=== PATIENT | male | born 2000 | race Caucasian/White ===

== ENCOUNTER 2024-01-17 12:50 | Emergency (ER) | payer BC, SELFPAY ==
[2024-01-17 13:13] VITALS: BP 99/72; PULSE 93; RESP 16; TEMP 38.2; O2SAT 99
--- NOTE | 2024-01-17 13:41 | WPDEDEXPGENP ---
HPI - General Ped General Chief complaint: Upper Respiratory Infection Stated complaint: fever Time Seen by Provider: 01/17/24 13:30 Source: patient, RN notes reviewed and old records reviewed Mode of arrival: ambulatory Limitations: no limitations Nursing Documentation: reviewed/agree History of Present Illness HPI narrative: 23 year old male who presents to [facility] care with complaints of 2 day history of fevers, feels weak, feels congested with some sore throat, nasal drainage, and body aches. Patient reports that he has been taking Tylenol cold and flu for his fevers and body aches. Patient reports that his last fever noted to be 100.6F today. Patient denies any shortness of breath, no nausea or vomiting or any diarrhea. Patient has not had COVID or flu shot. MD complaint: cough, sore throat, headache,body aches, sinus drainage, feels weak Onset (ago): day(s) (2) Severity scale (1-10): 6 Pain Consistency: constant Treatments prior to arrival: other (Tylenol cold and flu) Related Data Allergies Allergy/AdvReac Type Severity Reaction Status Date / Time No Known Allergies Allergy Verified 01/17/24 13:36 Pediatric Review of Systems Review of Systems: CONSTITUTIONAL: Reports malaise, chills, sweats, or fever. EYES: Denies visual changes, redness, or discharge. ENT: Reports rhinorrhea, congestion, sinus pain,no otalgia and positive for sore throat. CARDIOVASCULAR: Denies chest pain, palpitations, or edema. RESPIRATORY: Reports cough.? Denies dyspnea. GASTROINTESTINAL: Denies abdominal pain, nausea, vomiting, diarrhea SKIN: Denies rash or itching. MUSCULOSKELETAL: Reports myalgia. NEUROLOGIC: Reports headache. All systems ED: reviewed and negative except as stated PMF Past Medical History Medical History (Updated 01/18/24 @ 21:26 by Anais Jorgensen NP) COVID-19 Social History Social History (Updated 01/18/24 @ 21:21 by Anais Jorgensen NP) Smoking status: Current every day smoker Tobacco type: e-cigarettes/vaping Alcohol intake: current Alcohol use details: social Substance use type: does not use Gender identity (if verbalized by the patient): Male Comments At time of signature, agree with nursing past medical, surgical, social and family history. There is no relevant family history pertinent to the presenting complaint Pediatric Exam Narrative: Physical exam: GENERAL: Well-appearing, well-nourished, and in no acute distress. HEAD: Normocephalic EYES: PERRLA, conjunctivae clear ENT: Nares clear, turbinates edematous and erythematous, clear discharge. Mucous membranes moist. TM pearly garcia with dull light reflex bilaterally; no tragal tenderness. Oropharynx erythematous without lesions. Tonsils not enlarged and without exudate, no drooling, no hoarseness, no trismus, uvula midline.post nasal drainage NECK: Supple. No lymphadenopathy CHEST: Clear to auscultation, breath sounds equal. No wheezing, rhonchi, rales, or stridor. No respiratory distress, speaks in full sentences.cough SAO2 99% on room air HEART: Regular rate and rhythm. No murmur heard. SKIN: Warm, dry, no rash. NEURO: Alert and oriented x3. PSYCH: Normal mood and affect Course Course Emergency Course: Patient is aware of diagnosis, understands and agrees to treatment plan.? Anticipatory guidance given.? Patient agrees to follow-up as directed and is aware of reasons to seek care at the emergency department. Portions of this record may have been created with voice recognition software Level of Care: Express Care Visit Vital Signs Vital signs: Vital Signs Temperature 38.2 C H 01/17/24 13:13 Pulse Rate 93 01/17/24 13:13 Respiratory Rate 16 01/17/24 13:13 Blood Pressure 99/72 L 01/17/24 13:13 Pulse Oximetry 99 01/17/24 13:13 Oxygen Delivery Room Air 01/17/24 13:13 Temperature 38.2 C H 01/17/24 13:13 Pulse Rate 93 01/17/24 13:13 Respiratory Rate 01/17
== END 2024-01-17 14:10 | disposition home or self-care (01) ==
PROVIDERS: Emergency Provider Registered Nurse
DX: J10.1 Influenza due to other identified influenza virus with other respiratory manifestations (principal); Z20.822 Contact with and (suspected) exposure to COVID-19; F17.290 Nicotine dependence, other tobacco product, uncomplicated; Z86.16 Personal history of COVID-19
CPT/HCPCS: 87081; 87426; 87804; 87880; 99213; G0463